=== PATIENT | female | born 1995 | race Caucasian/White ===

== ENCOUNTER 2019-08-07 15:39 | Emergency (ER) | payer OTHER ==
[~2019-08-07] VITALS: Ht 152.4 cm; Wt 54.4 kg
--- NOTE | 2019-08-07 16:30 | ED Upper Extremity ---
General Chief Complaint: Laceration Stated Complaint: L THUMB LACERATION Nursing Triage Note: CUT LEFT THUMB ON A BLADE FOR A VEGIE SLICER Nursing Sepsis Screen: No Definite Risk Source: patient Exam Limitations: no limitations History of Present Illness Date Seen by Provider: Aug 07, 2019 Time Seen by Provider: 16:00 Initial Comments 24-year-old female presents with a laceration to her left thumb. Patient reports that she was attempting to change the bleed on her which will slicer when she cut herself. Patient reports having a tetanus vaccine 2 years ago. Location Injury Occurred: home Onset: just prior to arrival Severity: mild Pain/Injury Location: left thumb Method of Injury: incised, other (laceration) Modifying Factors: Worse With Movement Allergies and Home Medications Allergies Coded Allergies: No Known Drug Allergies (Unverified , 08/07/19) Patient Home Medication List Home Medication List Reviewed: Yes Review of Systems Constitutional: no symptoms reported, see HPI EENTM: see HPI, no symptoms reported Respiratory: no symptoms reported, see HPI Cardiovascular: no symptoms reported, see HPI Gastrointestinal: no symptoms reported, see HPI Genitourinary: no symptoms reported, see HPI Musculoskeletal: no symptoms reported, see HPI Skin: see HPI, other (laceration left thumb) Psychiatric/Neurological: No Symptoms Reported, See HPI All Other Systems Reviewed Negative Unless Noted: Yes Past Ssjugcc-Entwvs-Ocypnq Hx Past Med/Social Hx: Reviewed Nursing Past Med/Soc Hx Patient Social History Alcohol Use: Occasionally Uses Recreational Drug Use: No 2nd Hand Smoke Exposure: No Recent Foreign Travel: No Contact w/Someone Who Travel: No Recent Infectious Disease Expo: No Recent Hopitalizations: No Physical Abuse: No Sexual Abuse: No Mistreated: No Fear: No Immunizations Up To Date Tetanus Booster (TDap): Less than 5yrs Seasonal Allergies Seasonal Allergies: No Past Medical History Surgeries: Yes ("THROAT") Cardiac: No Neurological: No : No Last Menstrual Period: Jul 26, 2019 Genitourinary: No Gastrointestinal: No Musculoskeletal: No Endocrine: No HEENT: No Cancer: No Psychosocial: No Blood Disorders: No Physical Exam Vital Signs Vital Signs - First Documented 08/07/19 15:45 Temp 36.5 Pulse 74 Resp 18 B/P (MAP) 103/58 (73) Pulse Ox 98 Capillary Refill : Less Than 3 Seconds Height, Weight, BMI Height: '" Weight: lbs. oz. kg; 23.00 BMI Method: General Appearance: WD/WN, no apparent distress HEENT: PERRL/EOMI, normal ENT inspection, TMs normal, pharynx normal Neck: non-tender, full range of motion, supple, normal inspection Cardiovascular: normal peripheral pulses, regular rate, rhythm, no edema, no gallop, no JVD, no murmur Respiratory: chest non-tender, lungs clear, normal breath sounds, no respiratory distress, no accessory muscle use Gastrointestinal: normal bowel sounds, non tender, soft, no pulsatile mass Back: normal inspection, no CVA tenderness, no vertebral tenderness Shoulder: normal inspection, non-tender, normal ROM Elbow/Forearm: normal inspection, non-tender Wrist: Yes normal inspection Hand: laceration (left thumb, medial aspect 1 cm) Neurologic/Tendon: normal sensation, normal motor functions, normal tendon functions Neurologic/Psychiatric: impregnator II-XII nml as tested, no motor/sensory deficits, alert, normal mood/affect, oriented x 3 Skin: normal color, warm/dry Lymphatic: no adenopathy Procedures/Interventions Wound Location: Upper Extremities (left thumb) Wound Length (cm): 1 Wound's Depth, Shape: superficial Wound Explored: clean Irrigated w/ Saline (ccs): 500 Betadine Prep?: Yes Anesthesia: 1% Lidocaine Volume Anesthetic (ccs): 3 Suture: Ethlion Suture Size: 5-0 Number of Sutures: 2 Sterile Dressing Applied?: Yes Progress Wound well approximated, bulky sterile dressing applied. Patient tolerated procedure well. Progress/Results/Core Measures Results/Orders Vital Signs/I&O 08/07/19 08/07/19 15:45 17:01 Temp 36.5 36.5 Pulse 74 74 Resp 18 18 B/P (MAP) 103/58 (73) 103/58 (73) Pulse Ox 98 98 Blood Pressure Mean: 73 POS Departure Impression Primary Impression: Laceration Disposition: 01 HOME, SELF-CARE Condition: Improved Departure-Patient Inst. Decision time for Depature: 16:30 Referrals: ASHANIT GODWNI MD (PCP/Family) Primary Care Physician Patient Instructions: Laceration Repair With Stitches (DC) Add. Discharge Instructions: You may alternate Tylenol 650 mg every 8 hours and ibuprofen 400 mg every 8 hours for pain Keep laceration dressed the rest of today. After today he may keep laceration open to air and last there is a chance it could be contaminated and then it will need to be covered with a Band-Aid. You may wash your hands like normal and shower normally. Do not submerge your and under water. Return for any emergent medical concerns All discharge instructions reviewed with patient and/or family. Voiced understanding. LINDA HYATT Aug 07, 2019 16:30 POS
[2019-08-07 17:01] VITALS: BP 103/58
== END 2019-08-07 17:01 | disposition home or self-care (01) ==
LOC: ER 15:42
DX: S61.012A Laceration without foreign body of left thumb without damage to nail, initial encounter (principal); W26.8XXA Contact with other sharp object(s), not elsewhere classified, initial encounter; Y92.009 Unspecified place in unspecified non-institutional (private) residence as the place of occurrence of the external cause
CPT/HCPCS: 99282

== ENCOUNTER 2019-08-14 10:40 | Emergency (ER) | payer OTHER ==
[~2019-08-14] VITALS: Ht 165 cm; Wt 54.5 kg
[2019-08-14 11:11] VITALS: BP 101/60
== END 2019-08-14 11:11 | disposition home or self-care (01) ==
LOC: EDUNIT# 10:40 → ER 10:41
DX: S61.012D Laceration without foreign body of left thumb without damage to nail, subsequent encounter (principal); X58.XXXD Exposure to other specified factors, subsequent encounter